=== PATIENT | male | born 1990 | race Caucasian/White ===

== ENCOUNTER 2020-01-25 14:52 | Emergency (ER) | payer OTHER ==
[2020-01-25 14:58] VITALS: BP 174/86
--- NOTE | 2020-01-25 15:36 | ER Document Report ---
ED Medical Screen (RME) - General Chief Complaint: Swelling of Lower Extremity Stated Complaint: RIGHT FOOT SWELLING Time Seen by Provider: 01/25/20 15:29 Mode of Arrival: Ambulatory Information source: Patient Notes: HPI; 30-year-old male no previous medical problems presents to the emergency room with right foot swelling for the past 8 days. Is a small erythematous lesion on the right dorsal aspect of the foot that he states started after the swelling. Was seen by [facility] and referred to the emergency room to rule out a DVT. He denies any trauma or injury. No previous history of DVTs or PEs. No recent travel. PE: Alert and oriented x3. Lungs: Clear to auscultation without rales, rhonchi, wheezes. Heart: Regular rate rhythm without murmurs, rubs, gallops. 3+ pitting edema noted to the right foot and ankle. There is a small erythematous lesion noted to the right mid dorsal foot. Warm but not tender to touch no active discharge or draining noted. I have greeted and performed a rapid initial assessment of this patient. A comprehensive ED assessment and evaluation of the patient, analysis of test results and completion of the medical decision making process will be conducted by additional ED providers. I have specifically instructed the patient or family members with the patient to immediately return to any nursing staff should anything change in the patient's condition or with their chief complaint. TRAVEL OUTSIDE OF THE [place] IN LAST 30 DAYS: No - Related Data Allergies/Adverse Reactions: Shellfish * [Shellfish] Allergy (Verified 10/30/15 00:28) Past Medical History - Past Medical History Cardiac Medical History: Denies: Hx Heart Attack, Hx Hypertension Pulmonary Medical History: Denies: Hx Asthma Neurological Medical History: Denies: Hx Cerebrovascular Accident, Hx Seizures GI Medical History: Denies: Hx Hepatitis, Hx Hiatal Hernia, Hx Ulcer Infectious Medical History: Denies: Hx Hepatitis Past Surgical History: Denies: Hx Open Heart Surgery, Hx Pacemaker Physical Exam - Vital signs Vitals: Temp Pulse Resp BP Pulse Ox 97.5 F 85 16 174/86 H 100 01/25/20 14:57 01/25/20 14:57 01/25/20 14:57 01/25/20 14:57 01/25/20 14:57 Course - Vital Signs Vital signs: Temp Pulse Resp BP Pulse Ox 97.5 F 85 16 174/86 H 100 01/25/20 15:29 01/25/20 14:57 01/25/20 14:57 01/25/20 14:57 01/25/20 14:57
[2020-01-25 16:40] LABS: ABSOLUTE BASOPHILS # (AUTO) 0.1 10^3/uL (0.0-0.2); ABSOLUTE EOSINOPHILS # (AUTO) 0.4 10^3/uL (0.0-0.6); ABSOLUTE LYMPHOCYTES (AUTO) 2.8 10^3/uL (0.5-4.7); ABSOLUTE MONOCYTES (AUTO) 0.7 10^3/uL (0.1-1.4); ABSOLUTE NEUT (AUTO) 6.8 10^3/uL (1.7-8.2); BASOPHILS % (AUTO) 0.8 % (0-2); EOSINOPHILS % (AUTO) 3.7 % (0-6); HEMOGLOBIN 16.6 g/dL (13.5-17.0); MEAN CORPUSCULAR HEMOGLOBIN 30.4 pg (27.0-33.4); MEAN CORPUSCULAR HGB CONC 34.6 g/dL (32.0-36.0); MEAN CORPUSCULAR VOLUME 88 fl (80-97); MONOCYTES % (AUTO) 6.7 % (3-13); PLATELET COUNT 251 10^3/uL (150-450); RED BLOOD COUNT 5.46 10^6/uL (4.35-5.55); RED CELL DISTRIBUTION WIDTH 13.3 % (11.5-14.0); SEGMENTED NEUTROPHILS % (AUTO) 62.8 % (42-78); TOTAL CELLS COUNTED % (AUTO) 100 %; WHITE BLOOD COUNT 10.9 10^3/uL (4.0-10.5)
[2020-01-25 16:42] LABS: INTERNATIONAL RATION (INR) 0.93; PROTHROMBIN TIME 12.4 SEC (11.4-15.4)
--- NOTE | 2020-01-25 16:43 | ER Document Report ---
ED Extremity Problem, Lower - General Chief Complaint: Swelling of Lower Extremity Stated Complaint: RIGHT FOOT SWELLING Time Seen by Provider: 01/25/20 15:29 Mode of Arrival: Ambulatory Notes: CHIEF COMPLAINT: Right foot and ankle swelling for 8 days HPI: 30-year-old otherwise healthy male presenting for right foot and ankle swelling for the last 3 days. No trauma. No fever. States initially the swelling went up to mid calf but that is resolved now there is just swelling in the ankle and foot. Patient did develop a slight wound on the lateral aspect of the foot 3 days after the swelling started. No definitive bites. Went to [facility] today and was referred over to the emergency department for evaluation. No chest pain shortness of breath. No history of rheumatoid issues. No history of gout ROS: See HPI - all other systems were reviewed and are otherwise negative Constitutional: no fever Eyes: no drainage, no blurred vision ENT: no runny nose, no sore throat Cardiovascular: no chest pain Resp: no SOB, no cough GI: no vomiting, no diarrhea, no abdominal pain : no dysuria Integumentary: no rash Allergy: no hives Musculoskeletal: Positive extremity pain or swelling Neurological: no numbness/tingling, no weakness MEDICATIONS: I agree with the patient medications as charted by the RN. ALLERGIES: I agree with the allergies as charted by the RN. PAST MEDICAL HISTORY/PAST SURGICAL HISTORY: Reviewed and agree as charted by RN. SOCIAL HISTORY: Reviewed and agree as charted by RN. FAMILY HISTORY: No significant familial comorbid conditions directly related to patient complaint EXAM: Reviewed vital signs as charted by RN. CONSTITUTIONAL: Alert and oriented and responds appropriately to questions. Well-appearing; well-nourished HEAD: Normocephalic; atraumatic EYES: PERRL; Conjunctivae clear, sclerae non-icteric ENT: normal nose; no rhinorrhea; moist mucous membranes NECK: Supple without meningismus CARD: Capillary refill less than 3 seconds; symmetric distal pulses RESP: Normal chest excursion without splinting or tachypnea ABD/GI: non-distended BACK: The back appears normal EXT: Moderate edema over the dorsal right foot and right ankle without erythema. No crepitus. No discoloration. Dorsalis pedis and posterior tibial pulses are present in the right foot and ankle. Sensation is intact in the toes with capillary refill less than 3 seconds. There is absolutely no calf pain on exam and no visible edema to the anterior tibial region of the right lower extremity. SKIN: Normal color for age and race; warm; dry; good turgor; small 1 cm scabbed area over the dorsal lateral distal right foot NEURO: Moves all extremities equally; Motor and sensory function intact PSYCH: The patient's mood and manner are appropriate. Grooming and personal hygiene are appropriate. MDM: 30-year-old male with edema of the right foot and ankle for 8 days. No swelling of the calf and no tenderness to the calf at this time to suggest a definitive DVT. Venous Doppler has been ordered. Screening labs have been ordered. I will obtain an x-ray of the foot as I do not have one on file here he had 1 at [facility] which they did not send in with him TRAVEL OUTSIDE OF THE [place] IN LAST 30 DAYS: No - Related Data Allergies/Adverse Reactions: Shellfish * [Shellfish] Allergy (Verified 10/30/15 00:28) Past Medical History - General Information source: Patient - Social History Smoking Status: Current Every Day Smoker Family History: Malignancy. denies: CAD Patient has homicidal ideation: No - Past Medical History Cardiac Medical History: Denies: Hx Heart Attack, Hx Hypertension Pulmonary Medical History: Denies: Hx Asthma Neurological Medical History: Denies: Hx Cerebrovascular Accident, Hx Seizures GI Medical History: Denies: Hx Hepatitis, Hx Hiatal Hernia, Hx Ulcer Infectious Medical History: Denies: Hx Hepatitis Past Surgical History: Denies: Hx Open Heart Surgery, Hx Pacemaker Physical Exam - Vital signs Vitals: Temp Pulse Resp BP Pulse Ox 97.5 F 85 16 174/86 H 100 01/25/20 14:57 01/25/20 14:57 01/25/20 14:57 01/25/20 14:57 01/25/20 14:57 Course - Re-evaluation Re-evalutation: 01/25/20 18:14 Patient's lab work does not show acute emergent abnormalities. Patient x-ray does not show acute emergent abnormalities. Doppler study negative for DVT. Sed rate was normal. Unknown as to why patient has isolated lymphedema. Does not appear to be cellulitic. Recommend compression stocking follow-up ort hopedics and PCP - Vital Signs Vital signs: Temp Pulse Resp BP Pulse Ox 97.5 F 85 16 174/86 H 100 01/25/20 15:29 01/25/20 14:57 01/25/20 14:57 01/25/20 14:57 01/25/20 14:57 - Laboratory Result Diagrams: 01/25/20 16:15 01/25/20 16:15 Laboratory results interpreted by me: 01/25/20 01/25/20 16:15 16:15 WBC 10.9 H Sodium 136.9 L Creatinine 1.49 H Est GFR (MDRD) Non-Af 56 L Discharge - Discharge Clinical Impression: Lymphedema Condition: Stable Disposition: HOME, SELF-CARE Additional Instructions: Your lab work and imaging studies including your Doppler study did not show acute emergent abnormalities today. It is unknown as to why you are having isolated swelling of the right foot and ankle. Use a compression stocking as discussed to help with swelling and follow-up both through orthopedics and your primary care provider for reevaluation of symptoms Referrals: [facility] [Primary Care Provider] - Follow up as needed JAMES DE JESUS MD [ACTIVE STAFF] - Follow up as needed
[2020-01-25 16:56] LABS: ALBUMIN 4.4 g/dL (3.5-5.0); ALKALINE PHOSPHATASE 74 U/L (38-126); ANION GAP 8 (5-19); ASPARTATE AMINO TRANSFERASE 29 U/L (17-59); BILIRUBIN,TOTAL 0.6 mg/dL (0.2-1.3); BLOOD UREA NITROGEN 12 mg/dL (7-20); CALCIUM 9.7 mg/dL (8.4-10.2); CARBON DIOXIDE 25 mmol/L (22-30); CHLORIDE 104 mmol/L (98-107); GLUCOSE 95 mg/dL (75-110); POTASSIUM 4.4 mmol/L (3.6-5.0)
--- NOTE | 2020-01-25 17:06 | RADIOLOGY REPORT (SQ) ---
EXAM DESCRIPTION: FOOT RIGHT COMPLETE IMAGES COMPLETED DATE/TIME: 01/25/2020 4:55 pm REASON FOR STUDY: edema COMPARISON: None. NUMBER OF VIEWS: Three views. TECHNIQUE: AP, lateral and oblique radiographic images acquired of the right foot. LIMITATIONS: None. FINDINGS: MINERALIZATION: Normal. BONES: Smooth her osteal reaction midshaft of the fourth meta tarsal bone may be related prior remot e injury. Accessory navicular and cuboid ossicles, normal anatomic variants. JOINTS: No effusions. SOFT TISSUES: No soft tissue swelling. No foreign body. OTHER: No other significant finding. IMPRESSION: 1. Marked soft tissue swelling. 2. No acute osseous findings. TECHNICAL DOCUMENTATION: JOB ID: [id number] 2010 [employer]- All Rights Reserved Reading location - IP/workstation name: [email or web address]
--- NOTE | 2020-01-25 18:25 | RADIOLOGY REPORT (SQ) ---
EXAM DESCRIPTION: VENOUS UNILATERAL LOWER IMAGES COMPLETED DATE/TIME: 01/25/2020 6:13 pm REASON FOR STUDY: right pedal edema COMPARISON: None. TECHNIQUE: Dynamic and static bennett scale and color images acquired of the right leg venous system. S elected spectral images acquired with additional compression and augmentation maneuvers. The contrala teral common femoral vein and saphenofemoral junction were also imaged. Images stored on PACS. LIMITATIONS: None. FINDINGS: COMMON FEMORAL: Normal phasicity, compression and augmentation. No visualized echogenic ma terial on bennett scale. No defects on color images. FEMORAL: Normal compression and augmentation. No visualized echogenic material on bennett scale. No defe cts on color images. POPLITEAL: Normal compression, augmentation. No visualized echogenic material on bennett scale. No defec ts on color images. CALF VESSELS: Normal compression, augmentation. No visualized echogenic material on bennett scale. No de fects on color images. GSV and SSV: Normal compression, augmentation. No visualized echogenic material on benentt scale. No def ects on color images. ANY DEEP VENOUS INSUFFICIENCY: Not evaluated. ANY EVIDENCE OF POPLITEAL CYST: No. OTHER: No other significant finding. CONTRALATERAL COMMON FEMORAL VEIN AND SAPHENOFEMORAL JUNCTION: Normal phasicity, compression and augmentation. No visualized echogenic material on bennett scale. No de fects on color images. IMPRESSION: NO EVIDENCE DVT OR SVT IN THE RIGHT LEG. TECHNICAL DOCUMENTATION: JOB ID: [id number] 2010 [employer]- All Rights Reserved Reading location - IP/workstation name: [email or web address]
== END 2020-01-25 19:01 | disposition home or self-care (01) ==
LOC: ER 14:52
DX: I89.0 Lymphedema, not elsewhere classified (principal); F17.200 Nicotine dependence, unspecified, uncomplicated
CPT/HCPCS: 36415; 80053; 85025; 85610; 85652; 93971; 99284

== ENCOUNTER 2020-08-28 12:32 | Emergency (ER) | payer OTHER ==
[2020-08-28 12:40] VITALS: BP 144/85
[2020-08-28] MEDS ORDERED: HYDROCODONE/ACETAMINOPHEN 5-325 MG (6 TAB/ER DISP) PO PRN (13:48)
--- NOTE | 2020-08-28 13:49 | ER Document Report ---
HPI - HPI Patient complains to provider of: left ear pain Time Seen by Provider: 08/28/20 13:31 Pain Level: Denies Context: 30-year-old male presents to the emergency room complaining of worsening right ear pain for the past 4 days. [facility] he did a telehealth visit on Wednesday and was given Augmentin. [facility] he was seen at [facility] 2 days ago and was prescribed prednisone and eardrops which he states are not helping. [facility] his left ear is now hurting. [facility] he went back to [facility] today and was told to come to the emergency room for further evaluation. Denies any trauma or injury. Denies any fevers. No recent swimming or flying. No use of Q-tips. Associated Symptoms: None Exacerbated by: Denies Relieved by: Denies Similar symptoms previously: No Recently seen / treated by doctor: Yes - [facility] - ROS Systems Reviewed and Negative: Yes All other systems reviewed and negative - CONSTITUTIONAL Constitutional: DENIES: Fever, Chills - EENT EENT: REPORTS: Ear Pain. DENIES: Sore Throat, Congestion - NEURO Neurology: DENIES: Headache - RESPIRATORY Respiratory: DENIES: Trouble Breathing - DERM Skin Color: Normal Past Medical History - General Information source: Patient - Social History Smoking Status: Current Every Day Smoker Frequency of alcohol use: Occasional Drug Abuse: None Family History: Malignancy. denies: CAD Patient has homicidal ideation: No - Past Medical History Cardiac Medical History: Denies: Hx Heart Attack, Hx Hypertension Pulmonary Medical History: Denies: Hx Asthma Neurological Medical History: Denies: Hx Cerebrovascular Accident, Hx Seizures GI Medical History: Denies: Hx Hepatitis, Hx Hiatal Hernia, Hx Ulcer Infectious Medical History: Denies: Hx Hepatitis Past Surgical History: Denies: Hx Open Heart Surgery, Hx Pacemaker Vertical Provider Document - CONSTITUTIONAL Agree With Documented VS: Yes Exam Limitations: No Limitations General Appearance: Moderate Distress - INFECTION CONTROL TRAVEL OUTSIDE OF THE [place] IN LAST 30 DAYS: No - HEENT HEENT: Atraumatic, Normocephalic, Tympanic Membrane Red, Tympanic Membrane Bulging - Right tympanic membrane erythematous and bulging. Right outer ear canal with moderate amount of swelling and purulent drainage noted. Left ear with a minimal amount of cerumen, left outer ear canal with erythema no swelling. Left tympanic membrane intact with no bulging or erythema.. negative: Pharyngeal Exudate, Pharyngeal Tenderness - NECK Neck: Normal Inspection, Supple - RESPIRATORY Respiratory: Breath Sounds Normal, No Respiratory Distress, Chest Non-Tender - CARDIOVASCULAR Cardiovascular: Regular Rate, Regular Rhythm, No Murmur Course - Re-evaluation Re-evalutation: 08/28/20 13:52 Cerumen removed from left ear canal with curette without difficulty. Instilled ear wick in right ear canal instilled normal saline to inflate air work without difficulty. Patient tolerated well. Patient was counseled to stop the Augmentin, start the Zithromax today. Continue with the eardrops as prescribed. He is to follow-up outpatient with ENT. On-call physician was provided. Patient was given strict return to the emergency room guidelines. Return for any new or worsening symptoms. All questions were answered. Patient verbalized understanding and agrees with plan of care. 08/28/20 14:01 - Vital Signs Vital signs: Temp Pulse Resp BP Pulse Ox 98.2 F 84 16 144/85 H 98 08/28/20 12:37 08/28/20 12:37 08/28/20 12:37 08/28/20 12:37 08/28/20 12:37 - Laboratory Results Critical Laboratory Results Reviewed: No Critical Results - Radiology Results Critical Radiology Results Reviewed: No Critical Results Procedures - Additional Procedures ear wick Time performed: 13:45 Notes: 08/28/20 13:45 Instilled ear wick into right ear without difficulty. Use normal saline so that ear wick to fully expand earwax. Patient was counseled to stop the Augmentin st art the Zithromax today. Continue with eardrops in both ears. Removed cerumen from left outer ear canal with ear wick without difficulty. He is to follow-up outpatient with ENT as discussed. On-call physician was provided. Patient was given strict return to the emergency room guidelines. Return for any new or worsening symptoms. All questions were answered. Patient verbalized understanding and agrees with plan of care. 08/28/20 14:00 Discharge - Discharge Clinical Impression: Bilateral otitis externa Qualifiers: Otitis externa type: unspecified type Chronicity: acute Qualified Code(s): H60.503 - Unspecified acute noninfective otitis externa, bilateral Right otitis media Qualifiers: Otitis media type: unspecified Qualified Code(s): H66.91 - Otitis media, unspecified, right ear Condition: Stable Disposition: HOME, SELF-CARE Instructions: Using Ear Drops with a Wick ([facility]), Otitis Externa ([facility]), Otitis Media ([facility]) Additional Instructions: Stop your Augmentin start the Zithromax today. Continue with use of eardrops in both ears. Call ENT today for an outpatient follow-up appointment. Return to the emergency room for any new or worsening symptoms. Prescriptions: Azithromycin [Zithromax 250 mg Tablet] 250 mg PO ASDIR PRN #6 tablet PRN Reason: Forms: Return to Work Referrals: [facility] [Primary [facility]] - Follow up as needed BRIEN SETH DO [ASSOCIATE] - Follow up tomorrow (Call tomorrow for an outpatient follow-up appointment.)
== END 2020-08-28 13:54 | disposition home or self-care (01) ==
LOC: ER 12:32
DX: H60.503 Unspecified acute noninfective otitis externa, bilateral (principal); H66.91 Otitis media, unspecified, right ear; F17.200 Nicotine dependence, unspecified, uncomplicated
CPT/HCPCS: 99284